=== PATIENT | male | born 1975 | race Caucasian/White ===

== ENCOUNTER 2019-09-05 02:20 | Emergency (ER) | payer OTHER, SELFPAY ==
[2019-09-05 02:41] VITALS: BP 152/95; RESP 18; TEMP 37.2; BMI 25.7
--- NOTE | 2019-09-05 02:56 | ECG_ITS ---
Measurements Intervals [place] Rate: 73 P: 68 W[place]: 136 QRS: 74 QRSD: 89 T: 52 QT: 349 QTc: 387 SINUS RHYTHM No previous ECG available for comparison Electronically Signed On 09-05-2019 20:04:28 CDT by Queenie Torres M.D. [email or web address]
--- NOTE | 2019-09-05 02:59 | W.ED.GENADLT ---
HPI - General Adult General: Chief complaint: General Medical Stated complaint: possible allergic reaction Time Seen by Provider: 09/05/19 02:53 History of Present Illness: HPI narrative: Patient comes to the ER complaining about eyes just do not feel right after drinking a few energy drinks and driving [place] from [facility] to go to his parents farm. 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 And then he states that he uses meth and smokes pot said and use meth for a while but he did use it this morning and smokes pot daily MD complaint: Jittery Onset (ago): day(s) Relieving factors: none Exacerbating factors: other (Diet?drug use) Associated symptoms: Deny chest pain, dyspnea, headache(s), nausea, rash or vomiting Treatments prior to arrival: none Review of Systems Narrative: [place] anxious and jittery Const: Denies: fever, chills or body aches Eyes: Denies: change in vision or blurry vision ENMT: Denies: throat pain or nasal congestion Card: Denies: chest pain or shortness of breath on exertion Resp: Denies: shortness of breath, productive cough or non-productive cough GI: Denies: abdominal pain, nausea or vomiting : Denies: difficulty urinating Musc: Denies: extremity pain Skin/Breast: Denies: rash Neuro: Denies: headache Psych: Denies: anxiety or depression Jacobo/Lymph: Denies: easy bruising PFSH ED PFSH: Social History Smoking and tobacco status: never smoked Physical Exam Narrative: EXAM NARRATIVE: Appears under the influence Const: COMMON NORMALS: no apparent distress, average body habitus and oriented x3 HENMT: COMMON NORMALS: normocephalic HEAD & SCALP: normal to inspection and normocephalic FACE & SINUS: normal facial exam Eye: COMMON NORMALS: conjunctivae normal GENERAL EYE: normal appearance of both eyes CONJUNCTIVA: Yes conjunctivae normal Neck/C-Spine: COMMON NORMALS: no JVD Chest: COMMONS NORMALS: inspection of chest normal Resp: COMMON NORMALS: normal respiratory effort and clear to auscultation bilaterally AUSCULTATION: clear to auscultation bilaterally Cardio: COMMON NORMALS: no JVD, regular rate and regular rhythm RATE: regular rate RHYTHM: regular rhythm GI: COMMON NORMALS: normal to inspection, nondistended, normoactive bowel sounds Extremity: COMMON NORMALS: normal to inspection and full ROM Neuro: COMMON NORMALS: oriented x3 Course Vital Signs: Vital signs: Vital Signs Temperature 98.9 F 09/05/19 02:41 Respiratory Rate 18 09/05/19 02:41 Blood Pressure 152/95 09/05/19 02:41 Discharge Plan Discharge Prescriptions: No Action Zyprexa 5 mg tablet 5 mg PO DAILY RF: 0 Paxil 20 mg tablet 20 mg PO DAILY RF: 0 Zestoretic 20-25 mg tablet 1 tab PO DAILY RF: 0 metoprolol tartrate 25 mg tablet 25 mg PO BID RF: 0 Strattera 80 mg capsule 80 mg PO DAILY RF: 0 Coding Level of Care Code ED Family Practitioner for Angelique Mao
[2019-09-05 03:20] VITALS: BP 150/98; PULSE 74; RESP 18; TEMP 37.1; O2SAT 98
== END 2019-09-05 03:22 | disposition home or self-care (01) ==
PROVIDERS: Emergency Provider Nurse Practitioner Family
DX: T78.40XA Allergy, unspecified, initial encounter (principal)
CPT/HCPCS: 12345; 93005; 99281; 99283